=== PATIENT | female | born 1940 | race Two or more races ===

== ENCOUNTER 2024-07-18 07:17 | Emergency (ER) | payer OTHER, MEDICAID ==
[~2024-07-18] VITALS: Ht 154.9 cm; Wt 127.2 kg
[2024-07-18 07:52] VITALS: PULSE 54; RESP 15; O2SAT 100
[2024-07-18 07:55] LABS: Basophils # (auto) 0 10 ^3/uL (0-0.2); Eosinophils # (auto) 0.2 10 ^3/uL (0-0.8); Monocytes # (auto) 0.5 10 ^3/uL (0-1.3); Nucleated Red Blood Cells % 0.1 %; White Blood Cell 6.2 10^3/uL (4.4-10.8)
[2024-07-18 07:56] LABS: Basophils % (auto) 0.8 % (0.0-2.0); Eosinophils % (auto) 3.3 % (0.0-7.0); Hematocrit 41.6 % (36.0-46.0); Hemoglobin 13.5 g/dL (12.2-16.2); Lymphocytes # (auto) 2.5 10 ^3/uL (0.4-5.4); Lymphocytes % (auto) 40.3 % (10.0-50.0); Mean Corpuscular Hemoglobin 27.2 pg (28.0-32.0); Mean Corpuscular Hgb Conc. 32.4 g/dL (32.0-36.0); Monocytes % (auto) 8.8 % (0.0-12.0); Neutrophils # (auto) 2.9 10 ^3/uL (1.6-8.6); Neutrophils % (auto) 46.8 % (37.0-80.0); Platelet Count (auto) 178 10^3/uL (140-450); Red Blood Cells 4.96 10^6/uL (4.0-5.20); Red Cell Distribution Width 16.9 % (11.8-14.3)
[2024-07-18] MEDS: ONDANSETRON HCL 4 MG/2 ML VIAL IV ONE (08:00)
[2024-07-18 08:02] LABS: Chloride 109 mmol/L (98-107); Potassium 4.1 mmol/L (3.5-5.1); Sodium 143 mmol/L (136-145)
[2024-07-18 08:03] LABS: Anion Gap 4 (5-15); Calcium 9.4 mg/dL (8.7-10.4); Carbon Dioxide 30 mmol/L (20-31)
[2024-07-18] MEDS: MECLIZINE HCL 25 MG TAB PO ONE (08:05)
[2024-07-18 08:08] LABS: BUN/Creatinine Ratio 12.6 (10.0-20.0); Blood Urea Nitrogen 14 mg/dL (9-23); Glucose 143 mg/dL (74-106)
[2024-07-18] MEDS: cloNIDine HCL 0.1 MG TAB PO ONE (08:17)
[2024-07-18 10:09] VITALS: BP 156/78; PULSE 62; RESP 15; TEMP 97.4; O2SAT 98
== END 2024-07-18 10:23 | disposition short-term general hospital (02) ==
LOC: EDSEX 07:17 → ER 07:17 → EDBD 07:17 → ER 10:23
DX: R42 Dizziness and giddiness (principal); R11.10 Vomiting, unspecified; I12.9 Hypertensive chronic kidney disease with stage 1 through stage 4 chronic kidney disease, or unspecified chronic kidney disease; E11.22 Type 2 diabetes mellitus with diabetic chronic kidney disease; N18.30 Chronic kidney disease, stage 3 unspecified; E78.5 Hyperlipidemia, unspecified; E03.9 Hypothyroidism, unspecified; Z90.49 Acquired absence of other specified parts of digestive tract; Z90.710 Acquired absence of both cervix and uterus; Z98.890 Other specified postprocedural states; Z88.5 Allergy status to narcotic agent
CPT/HCPCS: 36415; 70450; 80048; 85025; 96374; 99285; J2405; J8597